=== PATIENT | female | born 1990 | race Caucasian/White ===

== ENCOUNTER 2016-07-31 05:44 | Inpatient (IN) | payer BC ==
[2016-08-12] MEDS ORDERED: IV START KIT ONE (07:50)
[2016-08-12] MEDS ORDERED: LACTATED RINGERS 1,000 ML ONE (07:50)
[2016-08-12] MEDS ORDERED: LACTATED RINGERS 1,000 ML IV SCH ×2 (09:15→11:15)
[2016-08-12 09:53] VITALS: BMI 41.3
[2016-08-12 10:02] LABS: HEMATOCRIT 37.9 % (37.0-47.0); HEMOGLOBIN 12.1 gm/l (12.0-16.0); MEAN CELL VOLUME 82.2 fl (81.0-99.0); MEAN CORPUSCULAR HEMOGLOBIN 26.2 pg (27.0-31.0); MEAN CORPUSCULAR HGB CONC 31.9 g/dl (33.0-37.0); RED CELL DISTRIBUTION WIDTH 14.6 % (11.5-14.5)
[2016-08-12] MEDS ORDERED: CEFAZOLIN SODIUM 2 GRAM DUPLEX 2 G in Premix (D5W) 50 ml 1 EACH IV PRN (11:13)
[2016-08-12] MEDS ORDERED: MORPHINE SULFATE (DURAMORPH) 1 MG/ML 10ML AMP ONE (11:37)
[2016-08-12] MEDS ORDERED: SPINAL PROCEDURAL TRAY 1 EACH ONE (11:37)
[2016-08-12] MEDS ORDERED: BUPIVACAINE 0.75% SPINAL AMPUL 2 ML ONE (11:37)
[2016-08-12] MEDS ORDERED: CEFAZOLIN SODIUM 2 GRAM DUPLEX 50 ML IV ONE (12:11)
--- NOTE | 2016-08-12 12:14 | PDOC1 ---
- HPI 25 year old at 41+5, admitted today with SROM. Pt had intially wanted to , but then changed her mind and decided for repeat c/section. As she SROM she wanted to see if she would go into spontaneous labor today but was not octavio regularly and also still 1cm, 40%, unfavorable. Pt now desires repeat LTCS for means of delivery due to history of prior LTCS. She presents for assessment and review of history in anticipation of her upcoming surgery. Today patient denies any changes in health. Her course has been followed for the following problem list. Post-dates previous c/s x 1 - arrest of labor at 3cm, baby 8lbs 9oz CF carrier (FOB is not) SOCIAL HISTORY: Marital status: [], FOB involved: [], No Tobacco, alcohol use, or drug use. FAMILY HISTORY: No congenital abnormalities or twins. Allergies/Adverse Reactions: Allergies No Known Allergies Allergy (Verified 03/09/14 09:13) - Labs & Studies LABS: OPOS, Ab neg Rubella [Immune], RPR-[Negative], HbsAg-[Negative], HIV-[Negative] 1hr gtt 102 gbs negative REVIEW OF DATES: dates c/w 9w u/s pt had anatomy u/s at 21w - Review of Systems h/o tonsillectomy, c/s, laparoscopy for endometriosis - Physical Exam General: Afebrile, No Acute Distress Lungs: Clear to Auscultation Bilaterally Cardiovascular: Regular Rate and Rhythm Abdomen: Normal Bowel Sounds, Obese, Other (efw 3500g), No Tenderness Genitourinary: Other (cx=1/40/high, by CNM) Extremities: No Edema, No Tenderness - Assessment & Plan 25yo at 41+5, SROM, no active labor, and unfavorable. Pt desires repeat c/ s today Discussed with patient the risks of including infection, bleeding possibly requiring blood transfusion and even hysterectomy, damage to underlying structures including bowel, bladder, uterus, tubes, ovaries, baby, and ureter, as well as will have a scar and can have persistent pain and numbness at incision site. The patient agrees to proceed with LTCS. Preop instructions and postop expectations reviewed.
--- NOTE | 2016-08-12 12:27 | PCMAN ---
OB Admission Note - History : 2 Term: 1 : 0 Abortions (S&E): 0 Livin Gestational Age (weeks): 41 Days (#/7): 5 Admit Cervical Dilation:: 1 Admit Cervical Effacement (%):: 40 Admit Station:: -3 Admit Presentaton:: vertex Membrane Status: Ruptured Rupture (Date): 08/12/16 Rupture (Time): 06:00 Contractions: No Heart Rate:: 130 (moderate variability/accels present/decels absent) Status:: FHR Cat 1 EFW:: 8# Summary of Course:: Onset of care at 6 weeks weeks x 13 visits. JEAN PIERRE based on 9 week U/S. Normal PN labs and Anatomy U/S. complicated by hx of section for failure to progress. Had been planning a but decided on repeat c/s due to unripe cervix at 41 weeks. Came to [facility] at 0800 with report that her water broke at 0600. Denies regular contractions or painful cramping. SVE on admission was /-3; vertex confirmed with bedside U/S. Patient decided on repeat c/s versus expectant management. - Labs Blood Type: O (+) positive Hct/Hgb:: 11.1 Rubella Status: Immune GBS Status: Negative Abnormal Labs: None - Review of Systems Neg ROS - Physical Exam General: Afebrile, No Acute Distress Psych/Mental Status: Mood/Affect Appropriate, Judgment/Insight Intact, Bonding Well Neurological: Grossly Intact, Alert, Oriented x 4 Genitourinary: Normal Female Genitalia, No Edema Extremities: Full ROM, No Edema Skin: Normal Color, Warm, Dry - Additional Comments Assessment: 25 year old at 41w5d PROM clear fluid Hx of cesearean section GBS negative Not in labor Cervix unripe: Bishops score 4 Plan: Discussed options with patient and Dr. Antoine. Decision made collaboratively to proceed with repeat c/s in light of unripe cervix, limited cervical ripening options and degree of time needed for cervical ripening. Transfer of care to OBs for surgery and immediate period.
[2016-08-12] MEDS ORDERED: OXYTOCIN 10 UNITS/ML VIAL ONE ×2 (12:43)
[2016-08-12] MEDS ORDERED: NALBUPHINE HCL 20 MG/ML AMP IV PRN (14:00)
[2016-08-12] MEDS ORDERED: HYDROMORPHONE HCL 1 MG/ML SYRINGE IV PRN (14:00)
[2016-08-12] MEDS ORDERED: HYDROMORPHONE HCL 2 MG/ML SYRINGE IV PRN (14:00)
[2016-08-12] MEDS ORDERED: ONDANSETRON 4 MG/2ML 2 ML VIAL IV PRN (14:00)
[2016-08-12] MEDS ORDERED: DIPHENHYDRAMINE HCL 50 MG/1 ML VIAL IV PRN ×2 (14:00→14:13)
[2016-08-12] MEDS ORDERED: NALOXONE HCL 0.4 MG/ML VIAL IV PRN (14:00)
[2016-08-12] MEDS ORDERED: PROMETHAZINE HCL 25 MG/ML VIAL IM PRN (14:00)
[2016-08-12] MEDS ORDERED: EPHEDRINE SULFATE 50 MG/ML 1ML VIAL IV PRN (14:00)
[2016-08-12] MEDS ORDERED: LANOLIN 50 APPLIC/7G TUBE TP PRN (14:13)
[2016-08-12] MEDS ORDERED: DIPHENHYDRAMINE HCL 25 MG CAPSULE PO PRN (14:13)
--- NOTE | 2016-08-12 14:29 | OP ---
SHRUTHI OSUNA [id number] DATE OF OPERATION: August 12, 2016 PREOPERATIVE DIAGNOSES: 1. Post dates of 41 weeks plus 5 days. 2. Previous section. 3. Spontaneous rupture of membranes. 4. Desires repeat section. POSTOPERATIVE DIAGNOSES: 1. Post dates of 41 weeks plus 5 days. 2. Previous section. 3. Spontaneous rupture of membranes. 4. Desires repeat section. OPERATION PERFORMED: REPEAT LOW-TRANSVERSE SECTION. SURGEON: Royce Antoine M.D. VALET CASHIER: Susi Steen C.N.M. ANESTHESIA: Spinal. ESTIMATED BLOOD LOSS: 600 mL. COMPLICATIONS: None. OPERATIVE FINDINGS: Include: 1. A live born baby female weighing 9 pounds 12 ounces in stable condition and 9/9 with clear amniotic fluid. 2. Ovaries and tubes are normal bilaterally. DETAILS OF PROCEDURE: The patient was taken to the operating room and placed under spinal anesthesia. The patient was placed in a supine position and then prepped and draped in sterile fashion. Adequate anesthesia was confirmed. A Pfannenstiel incision was made and taken down to the level of the fascia. The fascia was incised transversely and dissected bilaterally off of the underlying rectus muscle. The rectus muscle was in the midline bluntly, and peritoneal cavity was entered in bluntly and stretched. An Kit retractor was then placed. A transverse incision was made on the lower uterine segment and stretched bilaterally. Baby's head was delivered through the abdominal and at this point required the aid of a sensing forcep to deliver the rest of the head. The shoulders were then delivered one by one and easily. The baby was then delivered to the abdomen. Cord was doubly clamped and cut and baby was taken to the warmer for the nursing staff. Placenta was then extracted manually and the uterus was cleared of all clots and membranes. The uterine incision was then closed with #0 Vicryl in a continuous fashion. A second layer of #0 Vicryl was used to imbricate this incision. There was good hemostasis observed. The peritoneum was then closed with #3-0 Vicryl. The rectus muscles were reapproximated with #3-0 Vicryl. The fascia was then closed with #0 Vicryl in a continuous fashion, and the subcutaneous space was then reapproximated with Chromic suture. The skin was then closed with #3-0 Monocryl. The patient was then recovered from anesthesia and taken to the recovery room in stable condition.
[2016-08-12] MEDS: LACTATED RINGERS 1,000 ML IV SCH ×2 (14:55→23:54)
[2016-08-12] MEDS: KETOROLAC TROMETHAMINE 30 MG/ML 1 ML VIAL IV SCH ×2 (14:57→20:49)
[2016-08-12] MEDS: DOCUSATE SODIUM 100 MG CAPSULE PO SCH (20:49)
[2016-08-13] MEDS: KETOROLAC TROMETHAMINE 30 MG/ML 1 ML VIAL IV SCH ×2 (03:05→10:14)
[2016-08-13] MEDS: LACTATED RINGERS 1,000 ML IV SCH ×3 (06:18→22:19)
[2016-08-13 06:58] LABS: HEMATOCRIT 31.2 % (37.0-47.0); HEMOGLOBIN 10.2 gm/l (12.0-16.0); MEAN CELL VOLUME 81.5 fl (81.0-99.0); MEAN CORPUSCULAR HEMOGLOBIN 26.6 pg (27.0-31.0); MEAN CORPUSCULAR HGB CONC 32.7 g/dl (33.0-37.0); RED CELL DISTRIBUTION WIDTH 14.6 % (11.5-14.5)
--- NOTE | 2016-08-13 08:00 | PDOC44 ---
- Subjective Day: 1 Reports Pain Tolerable, Reports Lochia Light, Reports Tolerating Regular Diet, Denies Nausea, Denies Vomiting, Denies Fever - Objective Temp Pulse Resp BP Pulse Ox 97.9 F 71 16 103/55 97 08/13/16 07:20 08/13/16 07:20 08/13/16 07:20 08/13/16 07:20 08/12/16 17:14 Lab Results 08/13/16 08/12/16 06:15 09:55 WBC 10.9 H 10.0 RBC 3.83 L 4.61 Hgb 10.2 L 12.1 Hct 31.2 L 37.9 Plt Count 157 188 08/13/16 08/12/16 06:15 09:55 MCH 26.6 L 26.2 L MCHC 32.7 L 31.9 L RDW 14.6 H 14.6 H Current Medications Generic Name Dose Route Start Last Admin Trade Name Freq PRN Reason Stop Dose Admin Diphenhydramine HCl 25 - 50 mg 08/12/16 14:00 08/13/16 01:36 Benadryl IV 08/13/16 12:12 25 mg Q4H PRN Administration Itching Diphenhydramine HCl 25 - 50 mg 08/12/16 14:13 Benadryl PO Q6H PRN Itching (Mild/Moderate) Diphenhydramine HCl 25 - 50 mg 08/12/16 14:13 Benadryl IV Q6H PRN Itching (Severe) Docusate Sodium 100 mg 08/12/16 21:00 08/12/16 20:49 Colace PO 100 mg BID DIVYA Administration Emollient Ointment 1 applic 08/12/16 14:13 08/12/16 21:50 [id number] TP 1 tube PRN PRN Administration sore nipples Ephedrine Sulfate 5 - 10 mg 08/12/16 14:00 Ephedrine Sulfate IV 08/13/16 12:12 Q5M PRN Ferrous Sulfate 325 mg 08/13/16 09:00 Ferrous Sulfate PO DAILY DIVYA Hydromorphone HCl 0.5 - 2 mg 08/12/16 14:00 Dilaudid IV 08/13/16 12:12 Q1H PRN Pain (Breakthrough) Hydromorphone HCl 0.5 - 2 mg 08/12/16 14:00 Dilaudid IV 08/13/16 12:12 Q1H PRN Pain Lactated Ringer's 1,000 mls @ 125 mls/hr 08/12/16 14:13 08/13/16 06:18 Lactated Ringers IV Not Given .Q8H DIVYA Ibuprofen 800 mg 08/12/16 14:21 Motrin PO Q8H PRN Pain Ketorolac Tromethamine 30 mg 08/12/16 14:00 08/13/16 03:05 Toradol IV 08/13/16 12:12 30 mg Q6H DIVYA Administration Ketorolac Tromethamine 30 mg 08/13/16 12:15 Toradol IV Q6H PRN Pain (Mild/Moderate) Multivi/Iron Carb/Fe Sulf/FA/Prenat 1 tab 08/13/16 09:00 Plus PO DAILY DIVYA Nalbuphine HCl 1 - 5 mg 08/12/16 14:00 Nubain IV 08/13/16 12:12 Q4H PRN Itching Naloxone HCl 0.2 - 0.4 mg 08/12/16 14:00 Narcan IV 08/13/16 12:12 Q5M PRN Ondansetron HCl 4 mg 08/12/16 14:00 Zofran IV 08/13/16 12:12 Q6H PRN Nausea/Vomiting Oxycodone/Acetaminophen 1 - 2 tab 08/12/16 14:13 Percocet 5/325 PO Q4H PRN Pain (Moderate) Promethazine HCl 6.25 - 12.5 mg 08/12/16 14:00 Phenergan IM 08/13/16 12:12 Q4H PRN Nausea/Vomiting Sodium Chloride 10 ml 08/12/16 17:00 08/13/16 03:05 Normal Saline 10ml Flush IV 10 ml Q8HR DIVYA Administration Sodium Chloride 10 ml 08/12/16 14:13 Normal Saline 10ml Flush IV PRN PRN IV Flush - Physical Exam General: Afebrile, No Acute Distress Fundus: Firm, At Umbilicus Abdomen: Normal Bowel Sounds, No Tenderness, No Distention Wound FINANCIAL ASSISTANT: Dressing Clean/Dry/Intact Disposition: Stable (doing well, regular postop care.)
[2016-08-13] MEDS: FERROUS SULFATE (65 Fe) 325 MG TABLET PO SCH (10:14)
[2016-08-13] MEDS: DOCUSATE SODIUM 100 MG CAPSULE PO SCH ×2 (10:14→20:22)
[2016-08-13] MEDS: OXYCODONE/ACETAMINOPHEN 5/325 MG TABLET PO PRN ×3 (10:14→20:22)
[2016-08-13] MEDS ORDERED: KETOROLAC TROMETHAMINE 30 MG/ML 1 ML VIAL IV PRN (12:15)
[2016-08-13] MEDS: IBUPROFEN 800 MG TABLET PO PRN (17:58)
[2016-08-13] MEDS: PRENATAL VIT/FE FUMARATE/FA 1 TABLET PO SCH (20:23)
[2016-08-14] MEDS: OXYCODONE/ACETAMINOPHEN 5/325 MG TABLET PO PRN ×3 (02:45→14:35)
[2016-08-14] MEDS: IBUPROFEN 800 MG TABLET PO PRN ×2 (02:46→09:52)
--- NOTE | 2016-08-14 07:45 | PDOC39B ---
Hospital Course: ADMIT DATE: 08/12/16 DISCHARGE DATE: 08/14/16 ADMISSION DIAGNOSES: postterm , previous c/section, spontaneous rupture of membranes, desires repeat c/section PROCEDURES: repeat low transverse c/section HISTORY OF PRESENT ILLNESS: 25 year old G2 T1 L1 at 41 weeks 5 days presenting with spontaneous rupture of membranes. HOSPITAL COURSE: The patient had a previous c/section and intially wanted to TOLAC. However after rupture of membranes, had unfavorable cervix with no active labor. Patient opted for repeat c/section. A repeat low transverse c/section was performed. Baby female, 9lbs 12oz, 9/9 apgars delivered. Patient had an uncomplicated postoperative course. Postoperative hgb=10.2. By day of discharge the patient is ambulating, eating, voiding, and passing flatus without difficulty. Pain is controlled and lochia is appropriate. She is []. Prescriptions of percocet, and motrin. Follow up 2 weeks. Laboratory Tests 08/12/16 08/13/16 09:55 06:15 WBC 10.0 10.9 H RBC 4.61 3.83 L Hgb 12.1 10.2 L Hct 37.9 31.2 L MCV 82.2 81.5 MCH 26.2 L 26.6 L MCHC 31.9 L 32.7 L RDW 14.6 H 14.6 H Plt Count 188 157 Blood Type O POSITIVE Antibody Screen Negative - Physical Exam Vital Signs: Temp Pulse Resp BP Pulse Ox 97.7 F 74 16 116/58 97 08/14/16 02:36 08/14/16 02:36 08/14/16 02:36 08/14/16 02:36 08/12/16 17:14
[2016-08-14 09:19] VITALS: BP 107/55
[2016-08-14] MEDS: DOCUSATE SODIUM 100 MG CAPSULE PO SCH (09:51)
[2016-08-14] MEDS: FERROUS SULFATE (65 Fe) 325 MG TABLET PO SCH (09:52)
[2016-08-14] MEDS: PRENATAL VIT/FE FUMARATE/FA 1 TABLET PO SCH (09:52)
== END 2016-08-14 14:40 | disposition home or self-care (01) | DRG 766 ==
LOC: EDSTATUS 12:46 → UNDOADMIN 08-12 06:47 → FBC 08-12 06:47
PROVIDERS: ADMIT Licensed Practical Nurse; ATTEND Obstetrics & Gynecology
PROC: 10D00Z1 Extraction of Products of Conception, Low, Open Approach (ICD-10-PCS; principal; 2016-08-12)
DX: O34.211 Maternal care for low transverse scar from previous cesarean delivery (principal); O48.0 Post-term pregnancy; Z3A.41 41 weeks gestation of pregnancy; Z37.0 Single live birth

== ENCOUNTER 2016-08-11 09:57 | Outpatient (CLI) | payer BC | END 2016-08-11 11:45 | disposition home or self-care (01) | LOC: FBCOUT 09:57 → FBC 09:57 → FBCOUT 11:45 | PROVIDERS: ATTEND Advanced Practice Midwife | DX: O48.0 Post-term pregnancy (principal); Z3A.00 Weeks of gestation of pregnancy not specified ==